=== PATIENT | male | born 1950 | race Caucasian/White ===

== ENCOUNTER 2018-01-01 13:35 | Inpatient (IN) | payer MEDICARE, OTHER ==
[~2018-01-01] VITALS: Ht 188 cm; Wt 103.8 kg
[2018-01-01] MEDS ORDERED: AMPICILLIN/SULBACTAM 3 GM in SODIUM CHLORIDE 0.9% 100 ML IV ONE (14:30)
[2018-01-01] MEDS ORDERED: SODIUM CHLORIDE FLUSH 10ML SYR IVF ONE (14:30)
[2018-01-01] MEDS ORDERED: SODIUM CHLORIDE 0.9% 1,000ML IVBOLUS ONE (14:30)
[2018-01-01] MEDS ORDERED: VANCOMYCIN 2,000 MG in SODIUM CHLORIDE 0.9% 500 ML IV ONE (14:30)
[2018-01-01] MEDS ORDERED: VANCOMYCIN PER PHARMACY IV ONE (14:30)
[2018-01-01 14:42] LABS: BASOPHILS % (AUTO) 0 % (0-1); EOSINOPHILS % (AUTO) 0 % (1-7); LYMPHOCYTES % (AUTO) 6 % (22-44); MD NO; MEAN CORPUSCULAR HEMOGLOBIN 32.1 pg (27.5-34.5); MEAN CORPUSCULAR HGB CONC 34.2 g/dL (33.2-36.2); MEAN CORPUSCULAR VOLUME 93.8 fL (81-97); MEAN PLATELET VOLUME 8.6 fL (7.4-10.4); MONOCYTES % (AUTO) 7 % (2-9); NEUTROPHILS # (AUTO) 11.74 x10^3/uL (1.8-6.8); NEUTROPHILS % (AUTO) 87 % (42-75); PLATELET COUNT 199 x10^3/uL (130-400); RED BLOOD COUNT 3.91 x10^6/uL (4.38-5.82); RED CELL DISTRIBUTION WIDTH 14.1 % (9.4-14.8)
[2018-01-01 14:51] LABS: ALBUMIN 2.9 g/dL (3.4-5.0); ANION GAP 9 mmol/L (5-15); CHLORIDE 103 mmol/L (98-107); CREATININE 1.63 mg/dL (0.7-1.3)
[2018-01-01 14:55] LABS: TROPONIN I < 0.015 ng/mL (0.000-0.045)
[2018-01-01] MEDS ORDERED: SODIUM CHLORIDE 0.9% 1,000 ML IV SCH (16:53)
[2018-01-01] MEDS ORDERED: ONDANSETRON 2MG/ML, 2ML IVPush PRN (17:00)
[2018-01-01] MEDS ORDERED: DOCUSATE 100 MG CAPSULE PO PRN (17:00)
[2018-01-01] MEDS ORDERED: VANCOMYCIN PER PHARMACY MC PRN (17:00)
[2018-01-01] MEDS ORDERED: POLYETHYLENE GLYCOL 17 GM PACKET PO PRN (17:00)
[2018-01-01 17:23] LABS: HEMOGLOBIN A1C 7.2 % (4.2-6.3)
[2018-01-01] MEDS ORDERED: HYDROcodone/APAP 5/325 TABLET ONE (17:26)
[2018-01-01] MEDS ORDERED: HEPARIN 5,000 UNITS/ML, 1ML ONE (17:26)
[2018-01-01] MEDS: HEPARIN 5,000 UNITS/ML, 1ML SQ SCH (17:28)
[2018-01-01] MEDS ORDERED: PHARMACOKINETIC CONSULTATION MC ONE (17:30)
[2018-01-01] MEDS ORDERED: PHARMACOKINETIC MONITORING MC PRN (17:30)
[2018-01-01] MEDS: HYDROcodone/APAP 5/325 TABLET PO PRN ×2 (17:30→21:21)
[2018-01-01 18:02] VITALS: BP 122/73
[2018-01-01 19:44] VITALS: BP 97/60
[2018-01-01] MEDS: INSULIN LISPRO 100 UNITS/ML, PEN SQ-INSULIN SCH (21:19)
[2018-01-01] MEDS: AMPICILLIN/SULBACTAM 3 GM in SODIUM CHLORIDE 0.9% 100 ML IV SCH (21:19)
[2018-01-02 00:47] VITALS: BP 111/71
[2018-01-02] MEDS: HEPARIN 5,000 UNITS/ML, 1ML SQ SCH ×3 (01:36→17:00)
[2018-01-02] MEDS: GABAPENTIN 300 MG CAPSULE PO SCH ×6 (01:37→21:28)
[2018-01-02] MEDS: HYDROcodone/APAP 5/325 TABLET PO PRN ×3 (01:52→12:51)
[2018-01-02] MEDS: AMPICILLIN/SULBACTAM 3 GM in SODIUM CHLORIDE 0.9% 100 ML IV SCH ×4 (03:22→21:28)
[2018-01-02 04:58] LABS: MEAN CORPUSCULAR HEMOGLOBIN 31.9 pg (27.5-34.5); MEAN CORPUSCULAR HGB CONC 34.1 g/dL (33.2-36.2); MEAN CORPUSCULAR VOLUME 93.3 fL (81-97); MEAN PLATELET VOLUME 8.9 fL (7.4-10.4); PLATELET COUNT 193 x10^3/uL (130-400); RED BLOOD COUNT 3.63 x10^6/uL (4.38-5.82); RED CELL DISTRIBUTION WIDTH 13.9 % (9.4-14.8)
[2018-01-02 05:09] LABS: ANION GAP 7 mmol/L (5-15); CALCIUM 7.6 mg/dL (8.5-10.1); CHLORIDE 101 mmol/L (98-107); CREATININE 1.04 mg/dL (0.7-1.3)
[2018-01-02 05:25] LABS: BASOPHILS # (AUTO) 0.02 x10^3/uL (0-0.1); BASOPHILS % (AUTO) 0 % (0-1); EOSINOPHILS # (AUTO) 0.01 x10^3/uL (0-0.4); EOSINOPHILS % (AUTO) 0 % (1-7); LYMPHOCYTES # (AUTO) 1.37 x10^3/uL (1-3.4); LYMPHOCYTES % (AUTO) 11 % (22-44); MD SCAN; MONOCYTES # (AUTO) 1.16 x10^3/uL (0.2-0.8); MONOCYTES % (AUTO) 10 % (2-9); NEUTROPHILS # (AUTO) 9.67 x10^3/uL (1.8-6.8); NEUTROPHILS % (AUTO) 79 % (42-75)
[2018-01-02] MEDS: INSULIN LISPRO 100 UNITS/ML, PEN SQ-INSULIN SCH ×4 (07:00→21:30)
[2018-01-02 08:15] VITALS: BP 135/73
[2018-01-02] MEDS ORDERED: MAGNESIUM SULFATE PMX 2GM/50ML 50 ML IV ONE (08:30)
[2018-01-02] MEDS: SENNA/DOCUSATE TABLET PO SCH (09:00)
[2018-01-02] MEDS ORDERED: IBUP-1221 PO (09:42)
[2018-01-02] MEDS ORDERED: DILT360C26 PO (09:42)
[2018-01-02] MEDS ORDERED: HYDR25TA6 PO (09:42)
[2018-01-02] MEDS ORDERED: LOSA1TAB22 PO (09:42)
[2018-01-02] MEDS ORDERED: LORA10TA3 PO (09:42)
[2018-01-02] MEDS ORDERED: LORA1TAB PO (09:42)
[2018-01-02] MEDS ORDERED: PRAV80TA2 PO (09:42)
[2018-01-02] MEDS ORDERED: ACET325C PO (09:42)
[2018-01-02] MEDS ORDERED: GABA600T2 PO (09:42)
[2018-01-02] MEDS ORDERED: METF10007 PO (09:42)
[2018-01-02 13:29] VITALS: BP 124/75
[2018-01-02] MEDS ORDERED: DILTIAZEM CD 180 MG CAP.ER.24H ONE (13:56)
[2018-01-02] MEDS ORDERED: LORazepam 1MG TABLET ONE (13:56)
[2018-01-02] MEDS ORDERED: LORATADINE 10 MG TABLET ONE (13:57)
[2018-01-02] MEDS: LOSARTAN 50MG TABLET PO SCH (13:58)
[2018-01-02] MEDS: LORazepam 1MG TABLET PO SCH ×2 (14:03→21:29)
[2018-01-02] MEDS: DILTIAZEM CD 180 MG CAP.ER.24H PO SCH (14:04)
[2018-01-02] MEDS: LORATADINE 10 MG TABLET PO SCH (14:04)
[2018-01-02] MEDS: VANCOMYCIN 1,900 MG in SODIUM CHLORIDE 0.9% 250 ML IV SCH (15:45)
[2018-01-02 20:22] VITALS: BP 123/70
[2018-01-02] MEDS ORDERED: LORazepam 1MG TABLET PO SCH (21:00)
[2018-01-02] MEDS: PRAVASTATIN 40 MG TABLET PO SCH (21:28)
[2018-01-02] MEDS: IBUPROFEN 200 MG TABLET PO PRN (21:40)
[2018-01-03] MEDS: HEPARIN 5,000 UNITS/ML, 1ML SQ SCH ×3 (02:36→18:23)
[2018-01-03] MEDS: AMPICILLIN/SULBACTAM 3 GM in SODIUM CHLORIDE 0.9% 100 ML IV SCH ×4 (02:36→21:09)
[2018-01-03] MEDS: HYDROcodone/APAP 5/325 TABLET PO PRN ×3 (02:41→18:26)
[2018-01-03 02:46] VITALS: BP 112/67
[2018-01-03] MEDS: INSULIN LISPRO 100 UNITS/ML, PEN SQ-INSULIN SCH ×4 (07:00→21:09)
[2018-01-03 08:00] VITALS: BP 99/65
[2018-01-03 08:39] LABS: BASOPHILS # (AUTO) 0.03 x10^3/uL (0-0.1); BASOPHILS % (AUTO) 0 % (0-1); EOSINOPHILS % (AUTO) 1 % (1-7); LYMPHOCYTES % (AUTO) 8 % (22-44); MD NO; MEAN CORPUSCULAR HEMOGLOBIN 31.7 pg (27.5-34.5); MEAN CORPUSCULAR VOLUME 93.4 fL (81-97); MEAN PLATELET VOLUME 8.5 fL (7.4-10.4); MONOCYTES # (AUTO) 0.91 x10^3/uL (0.2-0.8); MONOCYTES % (AUTO) 8 % (2-9); NEUTROPHILS # (AUTO) 9.34 x10^3/uL (1.8-6.8); NEUTROPHILS % (AUTO) 83 % (42-75); PLATELET COUNT 206 x10^3/uL (130-400); RED BLOOD COUNT 3.62 x10^6/uL (4.38-5.82); RED CELL DISTRIBUTION WIDTH 14.2 % (9.4-14.8)
[2018-01-03 08:53] LABS: ANION GAP 8 mmol/L (5-15); CALCIUM 7.9 mg/dL (8.5-10.1); CHLORIDE 100 mmol/L (98-107); CREATININE 1.21 mg/dL (0.7-1.3)
[2018-01-03 08:59] VITALS: BP 115/70
[2018-01-03] MEDS: GABAPENTIN 300 MG CAPSULE PO SCH ×6 (09:00→21:08)
[2018-01-03] MEDS: SENNA/DOCUSATE TABLET PO SCH (09:00)
[2018-01-03] MEDS ORDERED: LORATADINE 10 MG TABLET PO SCH (09:00)
[2018-01-03] MEDS ORDERED: DILTIAZEM CD 180 MG CAP.ER.24H PO SCH (09:00)
[2018-01-03] MEDS: LORazepam 1MG TABLET PO SCH ×2 (09:10→21:00)
[2018-01-03] MEDS: LORATADINE 10 MG TABLET PO SCH (09:11)
[2018-01-03] MEDS: DILTIAZEM CD 180 MG CAP.ER.24H PO SCH (09:11)
[2018-01-03 14:12] VITALS: BP 129/72
[2018-01-03] MEDS: LOSARTAN 50MG TABLET PO SCH (14:40)
[2018-01-03] MEDS: VANCOMYCIN 1,900 MG in SODIUM CHLORIDE 0.9% 250 ML IV SCH (16:10)
[2018-01-03 19:09] VITALS: BP 123/65
[2018-01-03] MEDS: ACETAMINOPHEN 325 MG TABLET PO PRN (19:51)
[2018-01-03] MEDS: PRAVASTATIN 40 MG TABLET PO SCH (21:09)
[2018-01-04 02:06] VITALS: BP 108/70
[2018-01-04] MEDS: HEPARIN 5,000 UNITS/ML, 1ML SQ SCH ×3 (02:30→18:33)
[2018-01-04] MEDS: AMPICILLIN/SULBACTAM 3 GM in SODIUM CHLORIDE 0.9% 100 ML IV SCH ×3 (03:34→19:57)
[2018-01-04 06:57] VITALS: BP 112/70
[2018-01-04] MEDS: INSULIN LISPRO 100 UNITS/ML, PEN SQ-INSULIN SCH ×4 (07:00→21:36)
[2018-01-04] MEDS: SENNA/DOCUSATE TABLET PO SCH (09:00)
[2018-01-04] MEDS: GABAPENTIN 300 MG CAPSULE PO SCH ×5 (09:00→21:35)
[2018-01-04] MEDS: LORazepam 1MG TABLET PO SCH ×2 (10:04→21:35)
[2018-01-04] MEDS: DILTIAZEM CD 180 MG CAP.ER.24H PO SCH (10:05)
[2018-01-04] MEDS: LORATADINE 10 MG TABLET PO SCH (10:05)
[2018-01-04] MEDS: HYDROcodone/APAP 5/325 TABLET PO PRN ×3 (10:14→21:40)
[2018-01-04 14:30] VITALS: BP 104/64
[2018-01-04] MEDS: LOSARTAN 50MG TABLET PO SCH (14:52)
[2018-01-04] MEDS: VANCOMYCIN 1,900 MG in SODIUM CHLORIDE 0.9% 250 ML IV SCH (16:25)
[2018-01-04] MEDS ORDERED: AMOX1TAB64 PO (16:39)
[2018-01-04 19:07] VITALS: BP 110/63
[2018-01-04] MEDS: PRAVASTATIN 40 MG TABLET PO SCH (21:35)
[2018-01-05] MEDS: AMPICILLIN/SULBACTAM 3 GM in SODIUM CHLORIDE 0.9% 100 ML IV SCH ×4 (00:17→17:33)
[2018-01-05 01:18] VITALS: BP 129/65
[2018-01-05] MEDS: HEPARIN 5,000 UNITS/ML, 1ML SQ SCH ×3 (02:54→17:56)
[2018-01-05 07:56] VITALS: BP 101/67
[2018-01-05] MEDS: LOSARTAN 50MG TABLET PO SCH (09:00)
[2018-01-05] MEDS: SENNA/DOCUSATE TABLET PO SCH (09:00)
[2018-01-05] MEDS: DILTIAZEM CD 180 MG CAP.ER.24H PO SCH (09:00)
[2018-01-05] MEDS: LORazepam 1MG TABLET PO SCH (09:00)
[2018-01-05] MEDS: INSULIN LISPRO 100 UNITS/ML, PEN SQ-INSULIN SCH ×4 (09:10→19:37)
[2018-01-05] MEDS: HYDROcodone/APAP 5/325 TABLET PO PRN (09:11)
[2018-01-05] MEDS: LORATADINE 10 MG TABLET PO SCH (09:12)
[2018-01-05] MEDS: GABAPENTIN 300 MG CAPSULE PO SCH ×3 (09:13→20:58)
[2018-01-05] MEDS: VANCOMYCIN 1,900 MG in SODIUM CHLORIDE 0.9% 250 ML IV SCH (12:09)
[2018-01-05 14:00] VITALS: BP 120/64
[2018-01-05] MEDS: ACETAMINOPHEN 325 MG TABLET PO PRN (19:23)
[2018-01-05 20:00] VITALS: BP 119/66
[2018-01-05] MEDS: LORazepam 0.5MG TABLET PO SCH (20:58)
[2018-01-05] MEDS: PRAVASTATIN 40 MG TABLET PO SCH (20:58)
[2018-01-05] MEDS ORDERED: LORazepam 1MG TABLET PO SCH (21:00)
[2018-01-06] MEDS: AMPICILLIN/SULBACTAM 3 GM in SODIUM CHLORIDE 0.9% 100 ML IV SCH ×2 (00:14→05:43)
[2018-01-06 01:15] VITALS: BP 125/81
[2018-01-06] MEDS: HEPARIN 5,000 UNITS/ML, 1ML SQ SCH ×3 (02:57→17:20)
[2018-01-06] MEDS: VANCOMYCIN 1,900 MG in SODIUM CHLORIDE 0.9% 250 ML IV SCH (06:24)
[2018-01-06] MEDS: IBUPROFEN 200 MG TABLET PO PRN ×2 (06:24→17:19)
[2018-01-06] MEDS: INSULIN LISPRO 100 UNITS/ML, PEN SQ-INSULIN SCH ×4 (07:00→21:08)
[2018-01-06 07:28] VITALS: BP 133/72
[2018-01-06] MEDS: SENNA/DOCUSATE TABLET PO SCH (09:00)
[2018-01-06] MEDS: LORATADINE 10 MG TABLET PO SCH (09:10)
[2018-01-06] MEDS: GABAPENTIN 300 MG CAPSULE PO SCH ×3 (09:10→20:59)
[2018-01-06] MEDS: LOSARTAN 50MG TABLET PO SCH (09:10)
[2018-01-06] MEDS: DILTIAZEM CD 180 MG CAP.ER.24H PO SCH (09:10)
[2018-01-06] MEDS: LORazepam 0.5MG TABLET PO SCH (09:10)
[2018-01-06 14:00] VITALS: BP 176/68
[2018-01-06 18:32] VITALS: BP 110/65
[2018-01-06] MEDS: ACETAMINOPHEN 325 MG TABLET PO PRN (19:24)
[2018-01-06] MEDS: PRAVASTATIN 40 MG TABLET PO SCH (20:59)
[2018-01-06] MEDS: AMOXICILLIN/CLAV 875-125MG TABLET PO SCH (20:59)
[2018-01-07 00:40] VITALS: BP 106/73
[2018-01-07] MEDS: HEPARIN 5,000 UNITS/ML, 1ML SQ SCH (02:30)
[2018-01-07] MEDS: IBUPROFEN 200 MG TABLET PO PRN (05:57)
[2018-01-07] MEDS: INSULIN LISPRO 100 UNITS/ML, PEN SQ-INSULIN SCH (07:00)
[2018-01-07 07:24] VITALS: BP 152/90
[2018-01-07] MEDS: DILTIAZEM CD 180 MG CAP.ER.24H PO SCH (08:23)
[2018-01-07] MEDS: AMOXICILLIN/CLAV 875-125MG TABLET PO SCH (08:23)
[2018-01-07] MEDS: LORATADINE 10 MG TABLET PO SCH (08:23)
[2018-01-07] MEDS: SENNA/DOCUSATE TABLET PO SCH (08:23)
[2018-01-07] MEDS: GABAPENTIN 300 MG CAPSULE PO SCH (08:23)
[2018-01-07] MEDS: LOSARTAN 50MG TABLET PO SCH (08:23)
== END 2018-01-07 09:45 | disposition home or self-care (01) | DRG 871 ==
LOC: SUATTDRO 16:33 → ED 16:52 → EDIP 16:53 → ED 16:58 → 3NE 17:01
PROVIDERS: ADMIT Family Medicine; ATTEND Family Medicine
DX: A41.9 Sepsis, unspecified organism (principal); N17.0 Acute kidney failure with tubular necrosis; L03.115 Cellulitis of right lower limb; E44.0 Moderate protein-calorie malnutrition; L03.116 Cellulitis of left lower limb; I50.9 Heart failure, unspecified; E11.40 Type 2 diabetes mellitus with diabetic neuropathy, unspecified; I11.0 Hypertensive heart disease with heart failure; E86.0 Dehydration; B95.62 Methicillin resistant Staphylococcus aureus infection as the cause of diseases classified elsewhere; I87.8 Other specified disorders of veins; L98.9 Disorder of the skin and subcutaneous tissue, unspecified; Z59.0 Homelessness; Z79.84 Long term (current) use of oral hypoglycemic drugs; Z83.3 Family history of diabetes mellitus; Z91.19 Patient's noncompliance with other medical treatment and regimen; Z68.29 Body mass index [BMI] 29.0-29.9, adult; Z76.5 Malingerer [conscious simulation]
CPT/HCPCS: 36415; 71045; 80048; 80202; 82040; 82962; 83036; 83605; 83735; 84100; 84145; 84484; 85025; 87040; 93005; 96361; 96374; 96375; 99285; G0378; J0295; J1644; J3370; J1815; J3475; J7030; J7040; J7050

== ENCOUNTER 2018-01-15 14:23 | Emergency (ER) | payer MEDICARE ==
[~2018-01-15] VITALS: Ht 188 cm; Wt 104.4 kg
[~2018-01-15 14:23] MED LIST: ACET325C PO; AMOX1TAB64 PO; DILT360C26 PO; GABA600T2 PO; HYDR25TA6 PO; IBUP-1221 PO; LORA10TA3 PO; LORA1TAB PO; LOSA1TAB22 PO; METF10007 PO; PRAV80TA2 PO
[2018-01-15 14:57] LABS: BASOPHILS # (AUTO) 0.05 x10^3/uL (0-0.1); BASOPHILS % (AUTO) 1 % (0-1); EOSINOPHILS # (AUTO) 0.09 x10^3/uL (0-0.4); EOSINOPHILS % (AUTO) 1 % (1-7); LYMPHOCYTES # (AUTO) 1.78 x10^3/uL (1-3.4); LYMPHOCYTES % (AUTO) 23 % (22-44); MD NO; MEAN CORPUSCULAR HEMOGLOBIN 31.6 pg (27.5-34.5); MEAN CORPUSCULAR HGB CONC 33.6 g/dL (33.2-36.2); MEAN CORPUSCULAR VOLUME 93.9 fL (81-97); MEAN PLATELET VOLUME 7.5 fL (7.4-10.4); MONOCYTES # (AUTO) 0.56 x10^3/uL (0.2-0.8); MONOCYTES % (AUTO) 7 % (2-9); NEUTROPHILS # (AUTO) 5.41 x10^3/uL (1.8-6.8); NEUTROPHILS % (AUTO) 69 % (42-75); PLATELET COUNT 549 x10^3/uL (130-400); RED BLOOD COUNT 3.94 x10^6/uL (4.38-5.82); RED CELL DISTRIBUTION WIDTH 14.7 % (9.4-14.8)
[2018-01-15] MEDS ORDERED: SODIUM CHLORIDE FLUSH 10ML SYR IVF ONE (15:00)
[2018-01-15 15:09] LABS: ALANINE AMINOTRANSFERASE 55 U/L (12-78); ALBUMIN 3.3 g/dL (3.4-5.0); ANION GAP 8 mmol/L (5-15); CALCIUM 8.7 mg/dL (8.5-10.1); CHLORIDE 107 mmol/L (98-107)
[2018-01-15 15:12] LABS: ALKALINE PHOSPHATASE 103 U/L (45-117); BILIRUBIN,TOTAL 0.3 mg/dL (0.2-1.0)
[2018-01-15 15:31] VITALS: BP 112/81
== END 2018-01-15 16:17 | disposition left against medical advice (07) ==
LOC: ED 16:02
DX: L03.116 Cellulitis of left lower limb (principal); I10 Essential (primary) hypertension; E11.9 Type 2 diabetes mellitus without complications
CPT/HCPCS: 36415; 80053; 83605; 85025; 87040; 93005; 99285

== ENCOUNTER 2018-07-05 14:13 | Emergency (ER) | payer MEDICARE ==
[~2018-07-05] VITALS: Ht 188 cm; Wt 109.7 kg
[~2018-07-05 14:13] MED LIST changes: -ACET325C PO; +ACET325C3 PO; -GABA600T2 PO; +GABA600T7 PO; +LORA-247 PO; -LORA10TA3 PO
--- NOTE | 2018-07-05 14:28 | NUR ---
PT TO ROOM FROM LOBBY.
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
--- NOTE | 2018-07-05 14:43 | NUR ---
BEDSIDE REPORT TO BREAK ERICA HUI
[2018-07-05 14:53] LABS: BASOPHILS # (AUTO) 0.07 x10^3/uL (0-0.1); BASOPHILS % (AUTO) 1 % (0-1); EOSINOPHILS # (AUTO) 0.15 x10^3/uL (0-0.4); EOSINOPHILS % (AUTO) 2 % (1-7); LYMPHOCYTES # (AUTO) 1.34 x10^3/uL (1-3.4); LYMPHOCYTES % (AUTO) 16 % (22-44); MD NO; MEAN CORPUSCULAR HEMOGLOBIN 31.7 pg (27.5-34.5); MEAN CORPUSCULAR VOLUME 93.4 fL (81-97); MONOCYTES # (AUTO) 0.69 x10^3/uL (0.2-0.8); MONOCYTES % (AUTO) 8 % (2-9); NEUTROPHILS # (AUTO) 6.11 x10^3/uL (1.8-6.8); NEUTROPHILS % (AUTO) 73 % (42-75); PLATELET COUNT 187 x10^3/uL (130-400); RED BLOOD COUNT 4.66 x10^6/uL (4.38-5.82); RED CELL DISTRIBUTION WIDTH 15.1 % (9.4-14.8)
[2018-07-05 15:04] LABS: ALBUMIN 3.9 g/dL (3.4-5.0); ANION GAP 9 mmol/L (5-15); CALCIUM 9.1 mg/dL (8.5-10.1); CHLORIDE 107 mmol/L (98-107)
[2018-07-05 15:10] LABS: TROPONIN I < 0.015 ng/mL (0.000-0.045)
[2018-07-05] MEDS ORDERED: CEFAZOLIN 1,000 MG IM ONE (15:30)
[2018-07-05] MEDS ORDERED: HYDROcodone/APAP 5/325 TABLET PO ONE (15:30)
--- NOTE | 2018-07-05 15:31 | NUR ---
RECEIVED BEDSIDE REPORT FROM KORINA ASCENCIO. PT RESTING ON [facility]. NO ACUTE DISTRESS NOTED. NO NEEDS REQUESTED AT THIS [facility]
[2018-07-05] MEDS ORDERED: CEFAZOLIN PMX 1GM/50ML 50 ML ONE (15:48)
[2018-07-05] MEDS ORDERED: HYDROcodone/APAP 5/325 TABLET ONE (15:48)
[2018-07-05] MEDS ORDERED: CEFAZOLIN PMX 1GM/50ML 50 ML IV ONE (16:00)
[2018-07-05 16:04] VITALS: BP 141/78
--- NOTE | 2018-07-05 16:08 | NUR ---
PT RESTING ON GURNEY WATCHING TV AND RETURNING PHONE CALLS. NO ACUTE DISTRESS NOTED. MEDICATION ADMINISTERED PER EMAR. NO NEEDS REQUESTED AT THIS TIME.
[2018-07-05] MEDS ORDERED: KETOROLAC 30 MG/1 ML IVPush ONE (16:30)
[2018-07-05] MEDS ORDERED: KETOROLAC 30 MG/1 ML ONE (16:57)
== END 2018-07-05 17:19 | disposition home or self-care (01) ==
LOC: ED 17:13
DX: S20.219A Contusion of unspecified front wall of thorax, initial encounter (principal); S80.812A Abrasion, left lower leg, initial encounter; L03.116 Cellulitis of left lower limb; E11.9 Type 2 diabetes mellitus without complications; I25.2 Old myocardial infarction; I11.0 Hypertensive heart disease with heart failure; I50.9 Heart failure, unspecified; Z95.1 Presence of aortocoronary bypass graft; Z90.49 Acquired absence of other specified parts of digestive tract; W55.82XA Struck by other mammals, initial encounter; Y93.89 Activity, other specified; Y92.89 Other specified places as the place of occurrence of the external cause; Y99.8 Other external cause status
CPT/HCPCS: 36415; 71045; 80048; 82040; 84484; 85025; 93005; 96365; 96375; 99284; J0690; J1885

== ENCOUNTER 2019-06-14 04:30 | Emergency (ER) | payer MEDICARE, OTHER ==
[~2019-06-14] VITALS: Ht 188 cm; Wt 99.0 kg
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
--- NOTE | 2019-06-14 05:08 | NUR ---
PT NOW REQUESTING MEDICATION AND STS HE CANNOT GET INTO LONG-TERM UNTIL 5 AND HE CANNOT GO TO [facility] FOR HIS "CHAIR THERAPY." PT STS HE IS HAVING A PANIC ATTACK AND NEEDS 4MG OF ATIVAN. PT EDUCATED THAT HE IS TO BE ASSESSED PRIOR TO MEDS BEING GIVEN. MD TO BE UPDATED.
[2019-06-14] MEDS ORDERED: ACETAMINOPHEN 500 MG TABLET ONE (05:49)
--- NOTE | 2019-06-14 05:52 | NUR ---
PT TO CT
[2019-06-14] MEDS ORDERED: ACETAMINOPHEN 500 MG TABLET PO ONE (06:00)
--- NOTE | 2019-06-14 06:25 | NUR ---
PT IN XRAY AT THIS TIME
--- NOTE | 2019-06-14 06:37 | NUR ---
MICHAEL RN: PT MEDICATED PER EMAR. 5 RIGHTS ADDRESSED.
[2019-06-14 07:01] VITALS: BP 132/76
--- NOTE | 2019-06-14 07:15 | NUR ---
REPORT FROM KORINA CAST. PT CARE RESPONSIBILITIES ASSUMED.
== END 2019-06-14 07:33 | disposition home or self-care (01) ==
LOC: ED 07:08
DX: S20.212A Contusion of left front wall of thorax, initial encounter (principal); S60.211A Contusion of right wrist, initial encounter; S00.93XA Contusion of unspecified part of head, initial encounter; E11.9 Type 2 diabetes mellitus without complications; I25.2 Old myocardial infarction; I11.0 Hypertensive heart disease with heart failure; I50.9 Heart failure, unspecified; Y04.0XXA Assault by unarmed brawl or fight, initial encounter; Y93.89 Activity, other specified; Y92.410 Unspecified street and highway as the place of occurrence of the external cause; Y99.8 Other external cause status
CPT/HCPCS: 70450; 93005; 99284; 99285

== ENCOUNTER 2019-08-12 14:59 | Emergency (ER) | payer MEDICARE ==
[~2019-08-12] VITALS: Ht 188 cm; Wt 99.8 kg
[2019-08-12 15:07] VITALS: BP 155/89
--- NOTE | 2019-08-12 15:39 | NUR ---
Pt assisted to the restroom.
--- NOTE | 2019-08-12 15:42 | NUR ---
Pt 3 days ago tryed on a pair of gloves, he felt a sharp poke and pulled his hand out of the glove and didnt see anything. He then reinserted his hand in the glove and felt another sharp poke. He left the gloves alone. Pt is concerned it was a macanese spider, or staple from glove pacakaging. Pt has moderate swelling an bruising to left index finger and has yellow no pus like fluid. Pt reports he feels throbbing and numbness but has full sensation at times. pts cap refill under 3 seconds. Pt also reprots hx of DM
[2019-08-12] MEDS ORDERED: LIDOCAINE-MPF 1%, 5ML ONE (16:53)
--- NOTE | 2019-08-12 16:54 | NUR ---
Lidocaine provided for
[2019-08-12 17:02] LABS: BASOPHILS # (AUTO) 0.03 x10^3/uL (0-0.1); BASOPHILS % (AUTO) 1 % (0-1); EOSINOPHILS # (AUTO) 0.13 x10^3/uL (0-0.4); EOSINOPHILS % (AUTO) 2 % (1-7); LYMPHOCYTES # (AUTO) 1.26 x10^3/uL (1-3.4); LYMPHOCYTES % (AUTO) 20 % (22-44); MD NO; MEAN CORPUSCULAR HEMOGLOBIN 32.7 pg (27.5-34.5); MEAN CORPUSCULAR HGB CONC 33.8 g/dL (33.2-36.2); MEAN CORPUSCULAR VOLUME 96.8 fL (81-97); MONOCYTES # (AUTO) 0.74 x10^3/uL (0.2-0.8); MONOCYTES % (AUTO) 12 % (2-9); NEUTROPHILS # (AUTO) 4.09 x10^3/uL (1.8-6.8); NEUTROPHILS % (AUTO) 65 % (42-75); PLATELET COUNT 233 x10^3/uL (130-400); RED BLOOD COUNT 4.13 x10^6/uL (4.38-5.82); RED CELL DISTRIBUTION WIDTH 14.7 % (9.4-14.8)
[2019-08-12 17:11] LABS: ANION GAP 7 mmol/L (5-15); CALCIUM 8.9 mg/dL (8.5-10.1); CHLORIDE 103 mmol/L (98-107)
[2019-08-12] MEDS ORDERED: SULFAMETH./TRIMETHOPRIM DS 800MG/160MG TABLET ONE (17:34)
[2019-08-12] MEDS ORDERED: NEOSPORIN OINT. PKT 1 PACKET ONE (17:34)
--- NOTE | 2019-08-12 17:38 | NUR ---
PT MEDICATED PER EMAR, AND DELIA EMT APPLYING DRESSING TO LEFT INDEX FINGER.
[2019-08-12] MEDS ORDERED: SULFAMETH./TRIMETHOPRIM DS 800MG/160MG TABLET PO ONE (18:00)
== END 2019-08-12 17:58 | disposition home or self-care (01) ==
LOC: ED 17:46
DX: L02.512 Cutaneous abscess of left hand (principal); E11.9 Type 2 diabetes mellitus without complications
CPT/HCPCS: 26010; 36415; 80048; 85025; 86140; 99284